=== PATIENT | male | born 2005 | race Caucasian/White ===

== ENCOUNTER 2025-01-07 05:38 | Emergency (ER) | payer BC, SELFPAY ==
[2025-01-07 05:40] VITALS: BP 150/80
[2025-01-07 05:52] VITALS: BMI 23.1
--- NOTE | 2025-01-07 05:57 | EDRN ---
Pt says 1 month ago pt went to urgent care for same problem and was told he pulled a muscle and it went away with tylenol after 1.5 days. Pt with same pain x 4 days, taking tylenol, doing breathing exercises and pain is not getting better. Pt says
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 Deep breathing and movement causes sharp pains and burning from 'pec down.' Last tylenol at 0445. No known injury, air travel, long car rides, leg
pain, swelling, abd pain, n/v, fever/chills. Occasional cough.
[2025-01-07 06:00] VITALS: BP 131/73
--- NOTE | 2025-01-07 06:18 | ED.GENMED ---
History of Present Illness
General
Chief Complaint: Chest Problem
Source: patient
Time Seen by Provider: 01/07/25 06:05
History of Present Illness
History of Present Illness:
20-year-old male with past medical history of asthma presenting to the emergency department for evaluation of left-sided chest wall pain stating he is having a hard time taking deep inspiration secondary to the pain, pain described to be relatively
constant, worse with deep inspiration and movement, nonradiating but does go down into the left lower chest wall. Minimal relief with Tylenol. Symptoms started this past . He does note that about 1 month ago he had similar event for which
he went to a local urgent care, had an EKG and chest x-ray done which was reportedly unremarkable, symptoms resolved after about a day and a half. Patient attempted to go to work this morning but due to the pain decided come to the ER instead.
Social history was noted for vaping daily. He states his grandfather was on a blood thinner but he is overall unsure for what.
Past History
Past History
ED Past Medical History: Asthma
ED Past Surgical History: None
Social History
Tobacco: Vaping
Alcohol: None
Drug: None
Personal: Single
Living: with family
Employment: Employed
Review of Systems
Review of Systems
All Other Systems: ROS reviewed and negative except as documented in HPI and ROS
Phy Exam
Physical Exam
Physical Exam:
GENERAL: Alert , in no apparent distress
HEAD: Normocephalic atraumatic
EYE: conjunctiva clear
NECK: Supple
ENT: o/p clr, mmm.
CARDIAC: Regular rate and rhythm
LUNGS: Clear breath sounds bilaterally, no acute respiratory distress, no wheezes/rales/rhonchi
CHEST WALL: Reproducible tenderness just inferior to the areola and just laterally along the mid clavicular line. No overlying rashes
NEUROLOGICAL: Alert and oriented
SKIN: Warm and dry, skin intact.
MUSCULOSKELETAL: well perfused.
PSYCH: Normal and appropriate interaction.
Scores
Heart Failure Risk
Heart Failure Risk Score: Not Applicable
Heart Score for Chest Pain Patients
STEMI patient?: No
History: Slightly or Non-Suspicious
ECG: Normal
Age: </= 45 years
Risk Factors: No Risk Factors
Troponin: </= Normal Limit
Heart Score for Chest Pain Patients: 0
Heart Score Risk: 2.5% MACE over next 6 weeks
Withdrawal Assessment of Alcohol
Withdrawal Assessment Completed?: Not applicable
Course
Orders/Labs/Results
Orders:
Orders
01/07/25 06:18
Electrocardiogram (*1) Urgent
Reason for Study: Chest Pain
EKG- Treatment ONCE
01/07/25 06:23
Ibuprofen [Motrin] 600 mg PO NOW STA
01/07/25 06:26
Basic Metabolic Panel Urgent
Complete Blood Count/With Diff Urgent
D-Dimer Urgent
Troponin I Urgent
01/07/25 07:21
CT Chest PE Study Urgent
Comment:
Reason For Exam: elevated dimer, pleurisy on left
Abnormal Lab Results
01/07/25
06:26
MPV 11.0 H fL
(7.4-10.4)
Absolute Monos (auto) 1.3 H 10^3/uL
(0.1-0.6)
Lymphocytes % 15.0 L %
(20.5-51.1)
Monocytes % 15.4 H %
(1.7-9.3)
D-Dimer 1.39 H ug/mlFEU
(0.00-0.50)
Glucose 108 H mg/dl
(70-99)
01/07/25 06:26
01/07/25 06:26
Vital Signs
Initial and Last Documented VS:
Initial Vital Signs
Temp Pulse Resp BP Pulse Ox
97.8 F 88 26 150/80 100
01/07/25 05:40 01/07/25 05:40 01/07/25 05:40 01/07/25 05:40 01/07/25 05:40
Last Documented Vital Signs
Temp Pulse Resp BP Pulse Ox
97.8 F 79 16 127/68 100
01/07/25 05:40 01/07/25 07:00 01/07/25 07:00 01/07/25 07:00 01/07/25 07:00
MDM/Problems Addressed
Differential Diagnosis Includes:
Costochondritis
Pleurisy
PE
ACS
Shingles
Pericarditis/myocarditis
Pneumothorax
MDM/Problems Addressed:
20-year-old male presenting to the ER for evaluation of left-sided chest wall tenderness, symptoms ongoing since , symptoms clearly reproducible with deep inspiration as well as movement and palpation. Patient had similar episode about 1
month ago and went to urgent care where he had an unremarkable EKG and chest x-ray. He did take Tylenol this morning but with minimal relief. I suspect pleurisy/costochondritis to be the most likely diagnosis given patient's lack of risk factors
however given the fact that this is his second episode in 1 month combined with the fact that he does vape daily will check labs including a D-dimer to rule out PE even though my suspicion for this diagnosis is quite minimal. Anticipate discharge
home with a 5 to 7-day course of anti-inflammatories.
*Radiology
Radiology exam reviewed: radiology read reviewed
*Pulse Oximetry
SaO2: 100
Oxygen Mode of Delivery: Room air
Patient hypoxic: no
*EKG
Heart Rate: 72
Rate: normal
Rhythm: sinus
[place]: normal axis
Ischemia: no ischemia
*Pharmaceutical Process Engineer Interpretation
Rate: normal
Heart Rate: 75
Rhythm: sinus
*Critical Care Note
Total Time (30-74mins, 75-104mins- exclusive of procedures): Not Applicable
Comment
Comment:
Patient's D-dimer elevated, CTA of the chest ordered.
Patient Management
Escalation/DeEscalation of care consider admission/obs:
CTA of the chest is negative for pulmonary embolism, there is a small left pleural effusion which is likely contributing to patient's pain. Unclear significance of this. Recommended close outpatient follow-up with primary care provider. Discussed
return precautions. NSAIDs as needed for pain.
ED Attending Note
-
Portions of this chart may have been created with voice recognition software.� Occasional wrong word or��sound alike� substitutions may have occurred due to the inherent limitations of voice recognition software.
Discharge Plan
Departure
Patient Disposition: Home (Routine Discharge)
Date of Disposition: 01/07/25
Time of Disposition: 08:09
Patient with high blood pressure during this ER visit?: No
Discharge Problem:
Pleurisy
Instructions: Pleuritic chest pain - ED (DC)
Prescriptions:
No Action
No Current Medications
0
Referrals:
UNKNOWN - PT DOES,NOT KNOW [Family Provider]
Stand Alone Forms: Return to Work
Interventions
Interventions:
*Risk Screen - Suicide Last Done: 01/07/25 05:40
*General Assessment Last Done: 01/07/25 05:52
*Neglect/Abuse Screening Last Done: 01/07/25 05:40
*ED- Fall Risk Assessment Last Done: 01/07/25 05:52
*ED COVID-19 Vaccine History Last Done: 01/07/25 05:52
*ED Influenza Vaccine History Last Done: 01/07/25 05:52
*Nursing Disposition Last Done: 01/07/25 08:19
ED- Cardiac Assessment Last Done: 01/07/25 06:06
ED-Musculoskeletal Assessment Last Done: 01/07/25 06:06
ED- Pulmonary Assessment Last Done: 01/07/25 06:06
Discharge Date and Time
Discharge Date/Time: 01/07/25 08:19
Print Language: JAPANESE
[2025-01-07] MEDS: MOTRIN 600 MG PO (06:31)
[2025-01-07 06:40] LABS: Hematocrit 42.4 % (39.0-52.0); Hemoglobin 14.2 g/dL (13.0-18.0); Mean Corp Hgb Conc. 33.5 g/dL (33.0-37.0); Mean Corpuscular Volume 87.1 fL (80.0-94.0); Nucleated Red Blood Cells % 0 % (-); Platelet Count 207 10^3/uL (130-400); Red Cell Dist. Width 13.0 % (11.5-14.5)
[2025-01-07 06:47] LABS: D-Dimer 1.39 ug/mlFEU (0.00-0.50)
[2025-01-07 06:57] LABS: Blood Urea Nitrogen 14 mg/dl (9-20); Calcium 9.8 mg/dl (8.4-10.2); Carbon Dioxide 29 mmol/L (22-30); Chloride 106 mmol/L (98-107); Estimated Creatinine Clearance > 125 ml/min; Glucose 108 mg/dl (70-99); Potassium 4.6 mmol/L (3.5-5.1); Sodium 141 mmol/L (135-145); eGFR > 60.00
[2025-01-07 07:00] VITALS: BP 127/68
[2025-01-07 07:12] LABS: Troponin I < 0.012 ng/ml
== END 2025-01-07 08:19 | disposition home or self-care (01) ==
LOC: EMR 05:38
PROVIDERS: Physician Assistant Medical; EMERGENCY PHYSICIAN Emergency Medicine
DX: J90 Pleural effusion, not elsewhere classified (principal); J45.909 Unspecified asthma, uncomplicated; F17.290 Nicotine dependence, other tobacco product, uncomplicated
CPT/HCPCS: 99284; 71275; 80048; 84484; 85025; 85379; 93005; Q9967